=== PATIENT | male | born 1990 | race Caucasian/White ===

== ENCOUNTER 2022-07-18 23:59 | Emergency (ER) | payer OTHER, SELFPAY ==
[2022-07-19] VITALS (9 sets, daily range): BP systolic 125–135; BP diastolic 65–95; PULSE 60–75; RESP 16–28; TEMP 36.6; O2SAT 95–97; BMI 20.9
--- NOTE | 2022-07-19 00:32 | DI.RAD.S_ITS ---
PROCEDURE: XR CHEST 1V INDICATIONS: chest pain, syncope TECHNIQUE: One view of the chest was acquired. COMPARISON: None. FINDINGS: Surgical changes and devices: None. Lungs and pleura: Lungs are clear. No pleural effusions or pneumothorax. Mediastinum: Mediastinal contours appear normal. Heart size is normal. Bones and chest wall: No suspicious bony lesions. Overlying soft tissues appear unremarkable. IMPRESSION: Normal for age, a source of chest pain is not found. Reported syncope, etiology not identified. No trauma from syncope is seen. Dictated by: Naman Cardenas M.D. on 07/19/2022 at 0:48 Approved by: Naman Cardenas M.D. on 07/19/2022 at 0:49
--- NOTE | 2022-07-19 00:40 | DI.CT.S_ITS ---
PROCEDURE: CT HEAD/BRAIN WO CON INDICATIONS: fall, syncope, head laceration TECHNIQUE: Noncontrast 4.5 mm thick angled axial sections acquired from the foramen magnum to the vertex, with coronal and sagittal reformats. For radiation dose reduction, the following was used: automated exposure control, adjustment of mA and/or kV according to patient size. COMPARISON: None. FINDINGS: Image quality: Excellent. CSF spaces: Basal cisterns are patent. No extra-axial fluid collections. Ventricles are normal in size and shape. Brain: No midline shift. No intracranial masses or hemorrhage. Mayorga-white matter interface is normal. Skull and face: Calvarium and visualized facial bones are intact, without suspicious lesions. Sinuses: Visualized sinuses and mastoids are clear. IMPRESSION: Normal for age, source of current pain after trauma and syncopal episode symptoms is not seen. Dictated by: Naman Cardenas M.D. on 07/19/2022 at 1:24 Approved by: Naman Cardenas M.D. on 07/19/2022 at 1:25
[2022-07-19 00:41] LABS: Add Manual Diff / Slide Review NO; Basophils Absolute Auto 0 /uL (0-100); Basophils Percent Auto 0.4 % (0-2); Eosinophils Absolute Auto 100 /uL (0-450); Eosinophils Percent Auto 1.8 % (2-4); Hematocrit 43.2 % (41-53); Hemoglobin 14.8 g/dL (13.5-17.5); Lymphocytes Absolute Auto 1100 /uL (1100-4500); Mean Corpuscular HGB Conc 34.4 % (30-36); Mean Corpuscular Hemoglobin 30.6 PG (26-34); Monocytes Absolute Auto 500 /uL (0-900); Neutrophils Absolute Auto 5600 /uL (1500-7000); Neutrophils Percent Auto 75.8 % (50-75); Platelet Count 197 X10^3/uL (150-400); Red Blood Cell Count 4.85 X10^6/uL (4.5-5.9); White Blood Cell Count 7.4 X10^3/uL (4.5-11.0)
--- NOTE | 2022-07-19 00:41 | ED.GENADULT ---
HPI - General Adult General Chief complaint: Syncope Stated complaint: Fell hit rt. side of head laceration above eye Time Seen by Provider: 07/19/22 00:12 Source: patient Mode of arrival: Ambulatory History of Present Illness HPI narrative: 32-year-old gentleman with no significant medical history was at a concert this evening we had a syncopal episode fell down hit his head has laceration of above his right brow feeling somewhat nauseated. There was an episode of emesis immediately after the fall. He states that he had a couple of drinks prior to the concert but no other recreational drugs. He notes he was standing on a chair near the back of room that was quite crowded and he had been standing for most of the concert when he became lightheaded and fell. He has no pain or tenderness anywhere aside from his head specifically no neck pain or tenderness no extremity issues and no rib pain. He did go home and take shower still feeling nauseated and ?off? and comes to the ER for further evaluation. He denies any recent fevers cough, abdominal pain, vomiting, chest pain, palpitations, dyspnea or orthopnea. Related Data Previous Rx's Medication Instructions Recorded ondansetron 4 mg disintegrating 4 mg PO Q8H PRN nausea and 07/19/22 tablet vomiting #10 tabs Allergies Allergy/AdvReac Type Severity Reaction Status Date / Time codeine Allergy Cough Verified 07/19/22 00:15 latex Allergy Verified 07/19/22 00:15 Review of Systems Review of Systems Narrative: Remainder of complete review of systems is otherwise unremarkable except for that included in the HPI. Patient History Social History Smoking Status: Never smoker Smoking Status: Never smoker alcohol intake frequency: a few times a week Substance Use Type: does not use Exam Initial Vital Signs Initial Vital Signs: Vital Signs Pulse Rate 70 07/19/22 00:10 Blood Pressure 135/95 H 07/19/22 00:10 Pulse Oximetry 97 07/19/22 00:10 General: Healthy appearing, in no acute distress. Able to give a complete and coherent history. Well-nourished well-developed HEENT: Moist mucous membranes, normal sclera with reactive pupils, 1.5 cm laceration to the right forehead just above his brow superficial bleeding is controlled Neck: No JVD, supple, no midline cervical spine tenderness Respiratory: Lungs are clear to auscultation, no wheezing no rales no rhonchi. Full and symmetrical air movement Chest and spine: No chest pain to palpation. No obvious injury no subcutaneous air. No tenderness to palpation along the thoracic or lumbar spine. Cardiac: Regular rate and rhythm no murmurs no bruits Abdomen: Soft, nontender, good bowel tones, no flank pain Skin: Warm and dry, no rashes Neurologic: Grossly neurologically intact with no obvious asymmetries or abnormalities Extremities: No trauma, well perfused Psych: Cooperative, appropriate insight and affect Procedures Laceration Repair Right brow: Time of procedure: 02:36 Site: face Side (If applicable): right Size (cm): 1.5 Description: linear Depth: simple, single layer Pre-repair: wound explored and deep structures intact Skin layer closed with: dermabond Course Orders Ordered: ED Orders 07/19/22 00:25 Complete Blood Count AUTO DIFF Stat Comprehensive Metabolic Panel Stat Lipase Stat Magnesium Stat Troponin & CK Cardiac Panel Stat 07/19/22 00:32 XR chest 1V Stat EKG-12 Lead Stat 07/19/22 00:40 CT head/brain wo con Stat Discontinued Medications Sodium Chloride (Normal Saline 0.9%) 1,000 mls @ 1,000 mls/hr IV BOLUS ONE Stop: 07/19/22 01:39 Last Admin: 07/19/22 00:44 Dose: 1,000 mls/hr Documented By: CARLITOS Ketorolac Tromethamine (Ketorolac 30 Mg/Ml Vial) 15 mg IV NOW ONE Stop: 07/19/22 02:30 Last Admin: 07/19/22 02:34 Dose: 15 mg Ondansetron HCl (Ondansetron 4 Mg/2 Ml Inj) 4 mg IV NOW ONE Stop: 07/19/22 00:41 Last Admin: 07/19/22 00:44 Dose: 4 mg Documented By: CARLITOS Vital Signs Vital signs: Vital Signs - 8 hr 07/19/22 00:15 07/19/22 00:10 07/19/22 00:10 Temperature 98 F Pulse Rate 75 70 Respiratory Rate 18 Blood Pressure 135/95 H 135/95 H Pulse Oximetry 97 97 Oxygen Delivery Method Room Air 07/19/22 00:30 07/19/22 00:30 10/16/22 00:54 Temperature Pulse Rate 72 67 Respiratory Rate 19 Blood Pressure 125/86 Pulse Oximetry 96 95 Oxygen Delivery Method 07/19/22 00:54 07/19/22 01:00 07/19/22 01:30 Temperature Pulse Rate 70 72 Respiratory Rate 23 28 H Blood Pressure 127/86 Pulse Oximetry 95 95 Oxygen Delivery Method Medical Decision Making Lab Data Result diagrams: 07/19/22 00:25 07/19/22 00:25 Labs: Lab Results 07/19/22 07/19/22 Range/Units 00:25 00:25 WBC 7.4 (4.5-11.0) X10^3/uL RBC 4.85 (4.5-5.9) X10^6/uL Hgb 14.8 (13.5-17.5) g/dL Hct 43.2 (41-53) % MCV 89.0 (80-100) fL MCH 30.6 (26-34) PG MCHC 34.4 (30-36) % RDW 13.0 (11.6-14.8) % Plt Count 197 (150-400) X10^3/uL Neut % (Auto) 75.8 H (50-75) % Lymph % (Auto) 15.0 L (25-40) % [place] % (Auto) 7.0 (3-14) % Eos % (Auto) 1.8 L (2-4) % Baso % (Auto) 0.4 (0-2) % Neut # (Auto) 5600 (3211-7186) /uL Lymph # (Auto) 1100 (5258-7930) /uL [place] # (Auto) 500 (0-900) /uL Eos # (Auto) 100 (0-450) /uL Baso # (Auto) 0 (0-100) /uL Sodium 138 (137-145) mmol/L Potassium 4.2 (3.4-5.1) mmol/L Chloride 104 (98-107) mmol/L Carbon Dioxide 24 (22-32) mmol/L BUN 17 (9-20) mg/dL Creatinine 1.05 (0.66-1.25) mg/dL Estimated GFR > 60 (>60) mL/min BUN/Creatinine Ratio 16.2 (6-22) Glucose 96 (70-100) mg/dL Calcium 8.4 (8.4-10.2) mg/dL Magnesium 1.8 (1.6-2.3) mg/dL Total Bilirubin 0.2 (0.2-1.3) mg/dL AST 26 (17-59) IU/L ALT 22 (<50) IU/L Alkaline Phosphatase 83 (38-126) U/L Total Creatine Kinase 103 (55-170) U/L CK-MB (CK-2) 1.09 (<2.37) ng/mL CK-MB (CK-2) Rel Index 1.1 L (1.5-5.0) % Troponin I < 0.012 (0.01-0.034) ng/mL Total Protein 7.3 (6.3-8.2) g/dL Albumin 4.5 (3.5-5.0) g/dL Globulin 2.8 (1.7-4.1) g/dL Albumin/Globulin Ratio 1.6 (1.0-2.8) Lipase 89 (23-300) U/L Imaging Data Chest x-ray: Radiologist's Impression: FINDINGS:? ? Surgical changes and devices:? None.? ? Lungs and pleura:? Lungs are clear.? No pleural effusions or pneumothorax.? ? Mediastinum:? Mediastinal contours appear normal.? Heart size is normal.? ? Bones and chest wall:? No suspicious bony lesions.? Overlying soft tissues appear unremarkable.? ? IMPRESSION:? Normal for age, a source of chest pain is not found.? Reported syncope, etiology not identified.? No trauma from syncope is seen. ? ? Dictated by: Naman Cardenas M.D. on 07/19/2022 at 0:48 ? ? CT scan - head: Radiologist's Impression: FINDINGS:? Image quality:? Excellent.? ? CSF spaces:? Basal cisterns are patent.? No extra-axial fluid collections.? Ventricles are normal in size and shape.? ? Brain:? No midline shift.? No intracranial masses or hemorrhage.? Mayorga-white matter interface is normal.? ? Skull and face:? Calvarium and visualized facial bones are intact, without suspicious lesions.? ? Sinuses:? Visualized sinuses and mastoids are clear.? ? IMPRESSION:? Normal for age, source of current pain after trauma and syncopal episode symptoms is not seen. ? ? Dictated by: Naman Cardenas M.D. on 07/19/2022 at 1:24 ? ? ECG Data Interpretation: Sinus rhythm at a rate of 67 Normal intervals, normal axis No acute ischemic changes MDM Narrative Medical decision making narrative: 32-year-old gentleman with a syncopal episode while at a concert fell hit the right side of his head headache, nausea vomiting. Workup for syncope is unremarkable. No evidence of infection, acute coronary syndrome, dehydration, electrolyte abnormalities. I do not suspect stroke am not concerned with pulmonary embolism. The head CT is unremarkable with no intracranial hemorrhage. The superficial laceration over his right brow was nicely reapproximated with skin glue without complication. He is still feeling slightly nauseated and ?off?. Reviewed signs and symptoms of postconcussion syndrome with recommendations for cognitive rest, Zofran to help with nausea, and return to the ER recommendations should symptoms worsen or change. Questions are answered he is safe for home discharge Discharge Plan Departure Patient Disposition: Home Clinical Impression: Vasovagal syncope Concussion Qualifiers: Encounter type: initial encounter Loss of consciousness presence/duration: with LOC of 30 min or less Qualified Code(s): S06.0X1A - Concussion with loss of consciousness of 30 minutes or less, initial encounter Instructions: DI for Concussion, DI for Postconcussion Syndrome Activity Restrictions/Additional Instructions: Thank you for coming in tonight I did not find a life-threatening explanation for the syncopal episode. I suspect it is related to the mild bit of alcohol, situation and standing. There is no evidence of a heart attack, stroke or infection. You do have a concussion and I have given you information of postconcussion syndrome. Your CT scan of your brain was very reassuring with no evidence of bleeding inside your brain. If you feeling particularly nauseated, the Zofran I have prescribed can be helpful. If you find that you are getting worse or develop any new symptoms, please feel free to return to the emergency department for further evaluation. Prescriptions: New ondansetron 4 mg tablet,disintegrating 4 mg PO Q8H PRN (Reason: nausea and vomiting) Qty: 10 0RF
[2022-07-19] MEDS: ONDANSETRON 4 MG/2 ML INJ IV (00:44)
[2022-07-19] MEDS: SODIUM CHLORIDE 0.9% 1,000 ML 1000 ML IV (00:44)
[2022-07-19 00:47] LABS: Alanine Aminotransferase 22 IU/L (<50); Albumin 4.5 g/dL (3.5-5.0); Albumin Globulin Ratio 1.6 (1.0-2.8); Alkaline Phosphatase 83 U/L (38-126); Aspartate Aminotransferase 26 IU/L (17-59); BUN Creatinine Ratio 16.2 (6-22); Bilirubin Total 0.2 mg/dL (0.2-1.3); Blood Urea Nitrogen 17 mg/dL (9-20); Calcium 8.4 mg/dL (8.4-10.2); Carbon Dioxide 24 mmol/L (22-32); Chloride 104 mmol/L (98-107); Creatine Kinase 103 U/L (55-170); Estimated Glomerular Filt Rate > 60 mL/min (>60); Globulin 2.8 g/dL (1.7-4.1); Glucose 96 mg/dL (70-100); Lipase 89 U/L (23-300); Magnesium 1.8 mg/dL (1.6-2.3); Potassium 4.2 mmol/L (3.4-5.1); Sodium 138 mmol/L (137-145); Total Protein 7.3 g/dL (6.3-8.2)
[2022-07-19 00:59] LABS: Troponin I < 0.012 ng/mL (0.01-0.034)
[2022-07-19 01:02] LABS: CKMB % Relative Index 1.1 % (1.5-5.0); Creatine Kinase MB 1.09 ng/mL (<2.37); HEMOLYSIS 18 (0-50)
[2022-07-19] MEDS: KETOROLAC 30 MG/ML VIAL 15 MG IV (02:34)
--- NOTE | 2022-07-19 02:34 | PC.NURSE ---
at the bedside gluing laceration
[2022-07-19] MEDS: ONDANSETRON 4 MG ODT PREPACK 1 BOTTLE MISC (02:45)
== END 2022-07-19 02:50 | disposition home or self-care (01) ==
PROVIDERS: Emergency Provider Emergency Medicine
DX: S06.0X1A Concussion with loss of consciousness of 30 minutes or less, initial encounter (principal); S01.111A Laceration without foreign body of right eyelid and periocular area, initial encounter; R55 Syncope and collapse; R11.0 Nausea
CPT/HCPCS: 12011; 36415; 70450; 71045; 80053; 82550; 82553; 83690; 83735; 84484; 85025; 93005; 93010; 96361; 96374; 96375; 99284; J1885; J2405

== ENCOUNTER 2022-09-21 16:13 | Emergency (ER) | payer OTHER, SELFPAY ==
[2022-09-21 16:32] VITALS: BP 150/78; PULSE 65; RESP 16; TEMP 37.3; O2SAT 97; BMI 22.3
--- NOTE | 2022-09-21 16:41 | DI.RAD.S_ITS ---
PROCEDURE: XR FINGER RT MIN 2V INDICATIONS: Long standing wound TECHNIQUE: AP hand, 2 views of the right index finger(s) acquired. COMPARISON: None. FINDINGS: Bones: No fractures or dislocations. No suspicious bony lesions. Soft tissues: No suspicious soft tissue calcifications. No radiopaque soft tissue foreign bodies IMPRESSION: Right index finger without acute fracture or dislocation. No suspicious soft tissue lesions. No radiopaque soft tissue foreign bodies. Dictated by: Gerard Galindo M.D. on 09/21/2022 at 16:57 Approved by: Gerard Galindo M.D. on 09/21/2022 at 16:58
--- NOTE | 2022-09-21 18:52 | ED_ITS ---
HPI - Skin/Abscess/Foreign Bdy General Chief complaint: Skin/Abscess/Foreign Body Stated complaint: Rt finger inj, Wart removal burn Time Seen by Provider: 09/21/22 18:32 Source: patient Mode of arrival: Ambulatory History of Present Illness HPI narrative: Patient is a 32-year-old male who approximately 10 days ago had a wart frozen from his right index finger. He states he received very little instructions on how to care for it. He also states that there was an issue with the cryo freeze gun and quite a bit of the freezing material the skin around the wart. It did develop a blister. States he was told not to wash his hand. He went to the walk-in clinic a couple days ago. They placed him in a splint because they told him not to move his finger and again told him not to wash his finger. He is here because of concern about an infection. Related Data Previous Rx's Medication Instructions Recorded ondansetron 4 mg disintegrating 4 mg PO Q8H PRN nausea and 07/19/22 tablet vomiting #10 tabs Allergies Allergy/AdvReac Type Severity Reaction Status Date / Time latex Allergy Severe Rash Verified 09/21/22 16:32 codeine Allergy Cough Verified 07/19/22 00:15 Review of Systems Musculoskeletal Musculoskeletal: Reports system reviewed and no additional complaints, except as documented Integumentary/Breasts Skin/Breast: Reports system reviewed and no additional complaints, except as documented Neurologic Neurologic: Reports system reviewed and no additional complaints, except as documented Hematologic/Lymphatic On Anticoagulants: No Patient History Social History Smoking Status: Never smoker Smoking Status: Never smoker alcohol intake frequency: a few times a week Substance Use Type: does not use Exam Initial Vital Signs Initial Vital Signs: Vital Signs Temperature 99.1 F 09/21/22 16:32 Pulse Rate 65 09/21/22 16:32 Respiratory Rate 16 09/21/22 16:32 Blood Pressure 150/78 H 09/21/22 16:32 Pulse Oximetry 97 09/21/22 16:32 Oxygen Delivery Method 09/21/22 16:32 Skin Other: There is a ruptured blister on the dorsum of the right index finger over the PIP joint. No surrounding erythema. Neuro Sensory Exam: no sensory deficits noted Extrem Other: Some difficulty with bending his index finger at the PIP joint. There is no swelling. Course Orders Ordered: ED Orders 09/21/22 16:41 XR finger RT min 2V Stat Vital Signs Vital signs: Vital Signs - 8 hr 09/21/22 16:32 Temperature 99.1 F Pulse Rate 65 Respiratory Rate 16 Blood Pressure 150/78 H Pulse Oximetry 97 Oxygen Delivery Method Room Air MDM - Skin/Abscess/Foreign Bdy Imaging Data Extremity x-ray #1: Radiologist's Impression: [address] [address] XRay Report Signed Patient: Royal He MR#: [id number] : 1990 Acct:[id number] Age/Sex: 32 / M Date of Service: 09/21/22 Loc: ED Accession Number: [id number] ?? Procedure: XR finger RT min 2V Ordering Provider: Olivia Cook D.O. PROCEDURE:? XR FINGER RT MIN 2V ? INDICATIONS:? Long standing wound ? TECHNIQUE:? AP hand, 2 views of the right index finger(s) acquired.? ? COMPARISON:? None. ? FINDINGS:? ? Bones:? No fractures or dislocations.? No suspicious bony lesions.? ? Soft tissues:? No suspicious soft tissue calcifications.? No radiopaque soft tissue foreign bodies ? IMPRESSION:? Right index finger without acute fracture or dislocation.? No suspicious soft tissue lesions.? No radiopaque soft tissue foreign bodies. ? ? Dictated by: Gerard Galindo M.D. on 09/21/2022 at 16:57 ? ? Approved by: Gerard Galindo M.D. on 09/21/2022 at 16:58?? [facility] Narrative Medical decision making narrative: The finger does not look infected. There is a ruptured blister with some drying of the skin over the PIP joint. X-ray is unremarkable. No indication for oral antibiotics. We did discuss care as I stated that this should be treated like a burn. I advised that he start some range of motion with his finger and not use the splint. We did discuss topical antibiotic ointment. Patient expressed understanding and agreement. Discharge Plan Departure Patient Disposition: Home Clinical Impression: Burn of finger Activity Restrictions/Additional Instructions: You can look up ?[employer] hand harrington on YouTube. The official tidal is ?harrington 306: Burn Hand stretches this can give you an idea of things that you can do to help while your burn his healing. You can use topical antibiotic ointment like we discussed. Contact your primary provider for a follow-up. Prescriptions: No Action ondansetron 4 mg tablet,disintegrating 4 mg PO Q8H PRN (Reason: nausea and vomiting) Qty: 10 0RF Visit Report Forms: Patient Portal/API
== END 2022-09-21 19:40 | disposition home or self-care (01) ==
PROVIDERS: Emergency Provider Emergency Medicine
DX: T23.221A Burn of second degree of single right finger (nail) except thumb, initial encounter (principal); W93.11XA Contact with liquid air, initial encounter
CPT/HCPCS: 73140; 99283